=== PATIENT | male | born 1975 | race American Indian/Alaskan Native ===

== ENCOUNTER 2018-09-09 00:09 | Emergency (ER) | payer MEDICAID ==
[2018-09-09] MEDS ORDERED: Sodium Chloride 0.9% 1,000 ML IV ONE (00:27)
[2018-09-09] MEDS ORDERED: Ondansetron 4 MG/2 ML SDV IVPUSH ONE (00:27)
--- NOTE | 2018-09-09 03:20 | EDM.PDOCBH ---
ED HPI GENERAL MEDICAL PROBLEM - General Chief Complaint: Drug or Alcohol Abuse Stated Complaint: MEDICAL [facility] Time Seen by Provider: 09/09/18 00:57 Source of Information: Reports: Patient History Limitations: Reports: No Limitations - History of Present Illness INITIAL COMMENTS - FREE TEXT/NARRATIVE: This patient comes in saying that he's been on about a 3 day drinking binge. He drinks about a pint of hard liquor every day. His last drink was about 1 PM on 08 September. He thinks he may be dehydrated. 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: Reports: IV/IO Other Treatments ENVIRONMENTAL SOLUTIONS ENGINEER: 500 ml normal saline Abdomen Pain Score (Numeric/FACES): 2 - Related Data Allergies Allergy/AdvReac Type Severity Reaction Status Date / Time No Known Allergies Allergy Verified 09/09/18 00:16 Home Meds: Home Meds Loratadine 10 mg PO DAILY 02/24/18 [History] buPROPion [buPROPion XL] 150 mg PO BID 02/24/18 [History] Past Medical History HEENT History: Reports: Allergic Rhinitis Genitourinary History: Reports: Renal Calculus Musculoskeletal History: Reports: Back Pain, Chronic Social & Family History - Tobacco Use Smoking Status *Q: Current Every Day Smoker Years of Tobacco use: 20 Packs/Tins Daily: 0.5 - Caffeine Use Caffeine Use: Reports: Coffee, Soda, Tea - Alcohol Use Date of Last Drink: 09/08/18 Time of Last Drink: 13:00 - Recreational Drug Use Recreational Drug Use: Yes Recreational Drug Type: Reports: Marijuana/Hashish, Methamphetamine ED ROS GENERAL - Review of Systems Review Of Systems: ROS reveals no pertinent complaints other than HPI. ED EXAM, BEHAVIORAL HEALTH - Physical Exam Exam: See Below Exam Limited By: No Limitations General Appearance: Alert, WD/WN, Mild Distress Eye Exam: Bilateral Eye: Normal Inspection Throat/Mouth: Normal Inspection Respiratory/Chest: Lungs Clear Cardiovascular: Regular Rate, Rhythm, No Murmur GI/Abdominal: Non-Tender Extremities: Normal Inspection Neurological: Alert, Normal Mood/Affect, CN II-XII Intact, Normal Cognition ( Does not appear intoxicated), No Motor/Sensory Deficits Skin Exam: Warm, Dry COURSE, BEHAVIORAL HEALTH COMP - Course Vital Signs: Last Vital Signs Temp 36.5 C 09/09/18 00:11 Pulse 98 07/04/19 00:11 Resp 16 09/09/18 00:11 BP 141/103 H 09/09/18 00:11 Pulse Ox 97 09/09/18 00:11 Orders, Labs, Meds: Laboratory Tests 09/09/18 09/09/18 Range/Units 00:26 00:27 WBC 7.9 (4.5-11.0) K/uL RBC 4.39 (4.30-5.90) M/uL Hgb 13.6 D (12.0-15.0) g/dL Hct 39.3 L (40.0-54.0) % MCV 90 (80-98) fL MCH 31 (27-31) pg MCHC 35 (32-36) % Plt Count 351 (150-400) K/uL Neut % (Auto) 62 (36-66) % Lymph % (Auto) 26 (24-44) % [place] % (Auto) 10 H (2-6) % Eos % (Auto) 2 (2-4) % Baso % (Auto) 1 (0-1) % Sodium 140 (140-148) mmol/L Potassium 3.6 (3.6-5.2) mmol/L Chloride 103 (100-108) mmol/L Carbon Dioxide 29 (21-32) mmol/L Anion Gap 8.4 (5.0-14.0) mmol/L BUN 13 (7-18) mg/dL Creatinine 1.0 (0.8-1.3) mg/dL Est Cr Clr Drug Dosing 96.23 mL/min Estimated GFR (MDRD) > 60 (>60) Glucose 97 (74-106) mg/dL Calcium 8.5 (8.5-10.1) mg/dL Medications Discontinued Medications Generic Name Dose Route Start Last Admin Trade Name Freq PRN Reason Stop Dose Admin Sodium Chloride 1,000 mls @ 999 mls/hr 09/09/18 00:27 09/09/18 00:34 Normal Saline IV 09/09/18 01:27 999 mls/hr .BOLUS ONE Administration Ondansetron HCl 4 mg 09/09/18 00:27 09/09/18 00:35 Zofran IVPUSH 09/09/18 00:28 4 mg ONETIME ONE Administration Re-Assessment/Re-Exam: An IV was established. He was given 1 L IV normal saline and 4 mg Zofran IV. This relieved his symptoms quite a bit area and Departure - Departure Time of Disposition: 03:18 Disposition: Home, Self-Care 01 Condition: Fair Clinical Impression: Alcohol consumption binge drinking - Discharge Information Referrals: PCP,None [Primary Care Provider] - Additional Instructions: Be sure to eat a normal diet and drink plenty of non-alcoholic liquids. Avoid alcohol as much as possible. Consider going to detox and alcohol rehabilitation in the future
== END 2018-09-09 03:43 | disposition home or self-care (01) ==
LOC: JP.ED 00:09
DX: R11.0 Nausea (principal); F17.210 Nicotine dependence, cigarettes, uncomplicated; Z79.899 Other long term (current) drug therapy
CPT/HCPCS: 36415; 80048; 85025; 96361; 96374; 99283; J2405; J7030

== ENCOUNTER 2023-06-16 00:16 | Emergency (ER) | payer MEDICAID ==
[2023-06-16] MEDS: Lidocaine 1% with EPINEPHrine 1:100,000 20 ML MDV INJECT ONE (00:49)
[2023-06-16] MEDS: Bacitracin Oint 1 GM U/D Packet TOP ONE (00:52)
== END 2023-06-16 01:23 | disposition home or self-care (01) ==
LOC: JP.ED 00:16
DX: S71.111A Laceration without foreign body, right thigh, initial encounter (principal); F17.210 Nicotine dependence, cigarettes, uncomplicated; W26.0XXA Contact with knife, initial encounter
CPT/HCPCS: 12002; 99283